=== PATIENT | male | born 1965 | race Caucasian/White ===

== ENCOUNTER → 2018-06-25 | Outpatient (CLI) | payer OTHER ==
[~2018-06-25] MED LIST: BENADRYL25 MG PO; CELECOXIB200 MG PO; COUMADIN,JANTOVE1 MG PO; COUMADIN1 MG PO; CRESTOR10 MG PO; ENDOCET 5-3251 EACH PO; FLEXERIL10 MG PO; Feosol PO; Flexeril PO; IRON325 M1 PO; LISINOPRIL10 MG PO; LO-DOSE ASPIRIN81 M1 PO; LOVASTATIN40 MG PO; METOPROLOL TART50 MG PO; NAPROSYN500 MG PO; NAPROXEN500 MG PO; NEXIUM40 MG PO; NIZORAL 2% CREA15 GM TP; NUVIGIL150 MG PO; OXYCODONE HCL5 MG PO; PERCOCET 5/31 TABLET PO; PROTONIX40 MG PO; SENNA-TIME S T1 EACH PO; SENOKOT S,PE1 TABLET PO; TOPROL XL50 MG PO; TYLENOL REGULA325 MG PO; Tylenol Regular Stre PO; Zocor PO
== END | disposition home or self-care (01) ==
LOC: NUC 09:32
DX: M19.071 Primary osteoarthritis, right ankle and foot (principal); R93.7 Abnormal findings on diagnostic imaging of other parts of musculoskeletal system; Z96.653 Presence of artificial knee joint, bilateral
CPT/HCPCS: 78306; A9503